=== PATIENT | male | born 1980 | race Asian ===

== ENCOUNTER → 2025-02-06 15:10 | Outpatient (CLI) | payer OTHER, SELFPAY ==
--- NOTE | 2025-02-06 | DI.RAD.S_ITS ---
PROCEDURE: XR HAND LT 2V INDICATIONS: LT/RT WRIST PAIN TECHNIQUE: 2 views of the hand(s) acquired. COMPARISON: None. FINDINGS: Bones: No fractures or dislocations. Carpal bones are normally aligned. No suspicious bony lesions. Soft tissues: No suspicious soft tissue calcifications. IMPRESSION: No acute bony abnormality. Dictated by: Chris Olson M.D. on 02/07/2025 at 3:37 Approved by: Chris Olson M.D. on 02/07/2025 at 3:38
--- NOTE | 2025-02-06 15:22 | DI.RAD.S_ITS ---
PROCEDURE: XR HAND RT 2V INDICATIONS: LT/RT WRIST PAIN TECHNIQUE: 2 views of the hand(s) acquired. COMPARISON: None. FINDINGS: Bones: No fractures or dislocations. Carpal bones are normally aligned. No suspicious bony lesions. Soft tissues: No suspicious soft tissue calcifications. IMPRESSION: No acute bony abnormality. Dictated by: Chris Olson M.D. on 02/07/2025 at 3:38 Approved by: Chris Olson M.D. on 02/07/2025 at 3:39
== END ==
PROVIDERS: PCP Oral & Maxillofacial Surgery; Referring Provider Oral & Maxillofacial Surgery; Visit Provider Chiropractor
DX: M19.041 Primary osteoarthritis, right hand (principal); M19.042 Primary osteoarthritis, left hand
CPT/HCPCS: 73120